=== PATIENT | female | born 1990 | race Hispanic/Latino ===

== ENCOUNTER 2018-03-07 08:07 | Emergency (ER) | payer OTHER ==
[2018-03-07] MEDS ORDERED: IBUPROFEN 600 MG TABLET ONE (08:29)
== END 2018-03-07 09:02 | disposition home or self-care (01) ==
LOC: EDH 08:07
DX: M25.512 Pain in left shoulder (principal); R07.89 Other chest pain; Z72.0 Tobacco use
CPT/HCPCS: 93005

== ENCOUNTER 2018-06-16 14:51 | Emergency (ER) | payer OTHER ==
[2018-06-16 16:25] LABS: APPEARANCE,URINE Clear (CLEAR); BILIRUBIN,URINE Negative (NEGATIVE); COLOR,URINE Yellow (YELLOW); GLUCOSE, URINE (UA) Negative (NEGATIVE); KETONES,URINE Negative (NEGATIVE); LEUKOCYTE ESTERASE ,URINE Small (NEGATIVE); NITRATE,URINE Negative (NEGATIVE); OCCULT BLOOD,URINE Trace (NEGATIVE); PROTEIN,URINE Negative (NEGATIVE)
[2018-06-16 16:38] LABS: HCG,QUAL RESULT NEGATIVE (NEGATIVE)
[2018-06-16 16:40] LABS: BACTERIA,URINE Few /HPF (None Seen); MUCUS,URINE Rare LPF (None Seen); SQUAMOUS EPITHELIAL CELL,UR Few /HPF (0-2)
== END 2018-06-16 19:02 | disposition home or self-care (01) ==
LOC: EDH 14:51
DX: R10.32 Left lower quadrant pain (principal); Z72.0 Tobacco use; Z98.890 Other specified postprocedural states
CPT/HCPCS: 76856; 81001; 81025

== ENCOUNTER 2019-04-12 23:08 | Emergency (ER) | payer SELFPAY ==
[2019-04-12 23:37] LABS: BASOPHILS % (AUTO) 0.2 % (0.0-5.0); EOSINOPHILS % (AUTO) 0.2 % (0.0-8.0); HEMATOCRIT 34.3 % (36-48); MEAN CORPUSCULAR HEMOGLOBIN 28.1 pg (27.0-33.0); MEAN CORPUSCULAR HGB CONC 33.6 g/dL (32.0-36.0); MEAN CORPUSCULAR VOLUME 83.6 fL (79-99); MONOCYTES % (AUTO) 5.3 % (3.0-13.0); NEUTROPHILS % (AUTO) 84.3 % (40.0-77.0); PLATELET COUNT (AUTO) 300 K/uL (130-400); RED CELL DISTRIBUTION WIDTH 15.8 % (11.0-15.5); WHITE BLOOD COUNT (AUTO) 15.8 K/uL (4.8-10.8)
[2019-04-12 23:38] LABS: APPEARANCE,URINE SL CLOUDY (CLEAR); BILIRUBIN,URINE SMALL (NEGATIVE); COLOR,URINE ORANGE (YELLOW); GLUCOSE, URINE (UA) NEGATIVE (NEGATIVE); KETONES,URINE 40 mg/dL (NEGATIVE); LEUKOCYTE ESTERASE ,URINE TRACE (NEGATIVE); NITRATE,URINE NEGATIVE (NEGATIVE); OCCULT BLOOD,URINE LARGE (NEGATIVE); PROTEIN,URINE 30 mg/dL (NEGATIVE)
[2019-04-12 23:42] LABS: CREATININE 0.7 mg/dL (0.5-1.5); POTASSIUM 3.5 mmol/L (3.5-5.1)
[2019-04-13] MEDS ORDERED: ACETAMINOPHEN 325 MG TAB ONE (00:07)
[2019-04-13 00:16] LABS: BACTERIA,URINE Few /HPF (None Seen); MUCUS,URINE Moderate LPF (None Seen); RBC,URINE 26-50 /HPF (0-1)
== END 2019-04-13 00:54 | disposition home or self-care (01) ==
LOC: EDH 23:08
DX: O03.9 Complete or unspecified spontaneous abortion without complication (principal); R10.9 Unspecified abdominal pain; Z3A.01 Less than 8 weeks gestation of pregnancy
CPT/HCPCS: 36415; 76801; 80048; 81001; 84702; 85025; 87210; 87486; 87797

== ENCOUNTER 2019-06-19 11:06 | Emergency (ER) | payer SELFPAY ==
[2019-06-19 11:31] LABS: BASOPHILS % (AUTO) 0.2 % (0.0-5.0); EOSINOPHILS % (AUTO) 0.3 % (0.0-8.0); HEMATOCRIT 33.3 % (36-48); LYMPHOCYTES % (AUTO) 15.8 % (21.0-51.0); MEAN CORPUSCULAR HEMOGLOBIN 28.5 pg (27.0-33.0); MEAN CORPUSCULAR HGB CONC 33.8 g/dL (32.0-36.0); MEAN CORPUSCULAR VOLUME 84.3 fL (79-99); MONOCYTES % (AUTO) 8.2 % (3.0-13.0); NEUTROPHILS % (AUTO) 75.5 % (40.0-77.0); PLATELET COUNT (AUTO) 258 K/uL (130-400); RED BLOOD CELL COUNT(AUTO) 3.95 MIL/uL (4.00-5.50); RED CELL DISTRIBUTION WIDTH 14.1 % (11.0-15.5); WHITE BLOOD COUNT (AUTO) 13.1 K/uL (4.8-10.8)
[2019-06-19] MEDS ORDERED: ONDANSETRON HCL 4 MG/2 ML VIAL ONE (11:35)
[2019-06-19] MEDS ORDERED: SODIUM CHLORIDE 0.9% 1000ML 1,000 ML IV ONE (11:35)
[2019-06-19 11:36] LABS: APPEARANCE,URINE Clear (CLEAR); BILIRUBIN,URINE Negative (NEGATIVE); COLOR,URINE Yellow (YELLOW); GLUCOSE, URINE (UA) Negative (NEGATIVE); KETONES,URINE Negative (NEGATIVE); LEUKOCYTE ESTERASE ,URINE Trace (NEGATIVE); NITRATE,URINE Negative (NEGATIVE); OCCULT BLOOD,URINE Trace (NEGATIVE); PROTEIN,URINE Negative (NEGATIVE)
[2019-06-19] MEDS ORDERED: KETOROLAC TROMETHAMINE 30MG/ML ONE (11:36)
[2019-06-19 11:39] LABS: HCG,QUAL RESULT NEGATIVE (NEGATIVE)
[2019-06-19 11:39] LABS: CREATININE 0.6 mg/dL (0.5-1.5); POTASSIUM 3.8 mmol/L (3.5-5.1)
[2019-06-19 11:45] LABS: WBC,URINE 0-1 /HPF (0-1)
[2019-06-19 11:46] LABS: BACTERIA,URINE Rare /HPF (None Seen); HYALINE CASTS, URINE 0-1 /LPF (0-1 /LPF)
[2019-06-19 11:46] LABS: ALBUMIN 3.4 g/dL (3.5-5.0); BILIRUBIN,TOTAL 0.5 mg/dL (0.2-1.0); TOTAL PROTEIN, SERUM 7.3 g/dL (6.0-8.3)
[2019-06-19] MEDS ORDERED: IOHEXOL-350 75 ML VIAL IV ONE (12:53)
== END 2019-06-19 14:26 | disposition home or self-care (01) ==
LOC: EDH 11:06
DX: R10.31 Right lower quadrant pain (principal); Z98.890 Other specified postprocedural states; Z72.0 Tobacco use
CPT/HCPCS: 36415; 74177; 80053; 81001; 81025; 83690; 85025; 96374; 96375; 99285; J1885; J2405; J7030; Q9967

== ENCOUNTER 2019-11-16 12:39 | Emergency (ER) | payer OTHER ==
[2019-11-16 13:20] LABS: BASOPHILS % (AUTO) 0.3 % (0.0-5.0); EOSINOPHILS % (AUTO) 0.5 % (0.0-8.0); HEMATOCRIT 36.6 % (36-48); LYMPHOCYTES % (AUTO) 18.3 % (21.0-51.0); MEAN CORPUSCULAR HEMOGLOBIN 26.4 pg (27.0-33.0); MEAN CORPUSCULAR HGB CONC 32.2 g/dL (32.0-36.0); MEAN CORPUSCULAR VOLUME 81.9 fL (79-99); MONOCYTES % (AUTO) 6.8 % (3.0-13.0); NEUTROPHILS % (AUTO) 73.2 % (40.0-77.0); PLATELET COUNT (AUTO) 455 K/uL (130-400); RED BLOOD CELL COUNT(AUTO) 4.47 MIL/uL (4.00-5.50); RED CELL DISTRIBUTION WIDTH 14.9 % (11.0-15.5); WHITE BLOOD COUNT (AUTO) 13.1 K/uL (4.8-10.8)
[2019-11-16 13:24] LABS: BILIRUBIN,URINE Negative (NEGATIVE); COLOR,URINE Yellow (YELLOW); GLUCOSE, URINE (UA) Negative (NEGATIVE); KETONES,URINE Negative (NEGATIVE); LEUKOCYTE ESTERASE ,URINE Negative (NEGATIVE); NITRATE,URINE Negative (NEGATIVE); OCCULT BLOOD,URINE Negative (NEGATIVE); PH,URINE 7.5 (5.0-8.0); PROTEIN,URINE Negative (NEGATIVE)
[2019-11-16 13:31] LABS: HCG,QUAL RESULT NEGATIVE (NEGATIVE)
[2019-11-16 13:32] LABS: CREATININE 0.5 mg/dL (0.5-1.5); POTASSIUM 3.9 mmol/L (3.5-5.1)
[2019-11-16 13:32] LABS: APPEARANCE,URINE CLEAR (CLEAR)
[2019-11-16 13:40] LABS: ALBUMIN 3.7 g/dL (3.5-5.0); BILIRUBIN,TOTAL 0.3 mg/dL (0.2-1.0); TOTAL PROTEIN, SERUM 8.4 g/dL (6.0-8.3)
== END 2019-11-16 14:25 | disposition left against medical advice (07) ==
LOC: EDH 12:39
DX: M54.6 Pain in thoracic spine (principal); Z72.0 Tobacco use
CPT/HCPCS: 36415; 80053; 81003; 81025; 85025

== ENCOUNTER 2022-07-03 15:53 | Emergency (ER) | payer MEDICAID ==
[~2022-07-03] VITALS: Ht 154.9 cm; Wt 77.6 kg
[2022-07-03 16:18] LABS: BASOPHILS % (AUTO) 0.4 % (0.0-5.0); HEMATOCRIT 38.2 % (36-48); MEAN CORPUSCULAR HEMOGLOBIN 27.3 pg (27.0-33.0); MEAN CORPUSCULAR VOLUME 82.7 fL (79-99); MONOCYTES % (AUTO) 8.9 % (3.0-13.0); NEUTROPHILS % (AUTO) 82.3 % (40.0-77.0); PLATELET COUNT (AUTO) 324 K/uL (130-400); RED BLOOD CELL COUNT(AUTO) 4.62 MIL/uL (4.00-5.50); RED CELL DISTRIBUTION WIDTH 15.5 % (11.0-15.5); WHITE BLOOD COUNT (AUTO) 8.4 K/uL (4.8-10.8)
[2022-07-03 16:26] LABS: CREATININE 0.7 mg/dL (0.5-1.5); POTASSIUM 3.3 mmol/L (3.5-5.1)
[2022-07-03 16:28] LABS: APPEARANCE,URINE CLEAR (CLEAR); BILIRUBIN,URINE NEGATIVE (NEGATIVE); COLOR,URINE YELLOW (YELLOW); GLUCOSE, URINE (UA) NEGATIVE (NEGATIVE); KETONES,URINE NEGATIVE (NEGATIVE); LEUKOCYTE ESTERASE ,URINE NEGATIVE Leu/uL (NEGATIVE); NITRATE,URINE NEGATIVE (NEGATIVE); OCCULT BLOOD,URINE MODERATE (NEGATIVE); PH,URINE 6.5 (5.0-8.0); PROTEIN,URINE 50 mg/dL (NEGATIVE); UROBILINOGEN,URINE 3 mg/dL (0.2-1.0)
[2022-07-03] MEDS ORDERED: BENZONATATE 100 MG CAPSULE PO SCH (16:30)
[2022-07-03] MEDS ORDERED: 0.9%NACL 1000ML 1,000 ML IV ONE (16:30)
[2022-07-03] MEDS ORDERED: IBUPROFEN 600 MG TABLET PO ONE (16:30)
[2022-07-03] MEDS ORDERED: ONDANSETRON 4MG INJ IVP ONE (16:30)
[2022-07-03] MEDS ORDERED: ACETAMINOPHEN 500 MG TABLET PO ONE (16:30)
[2022-07-03] MEDS ORDERED: FAMOTIDINE 20MG VIAL IV ONE (16:30)
[2022-07-03 16:31] LABS: HCG,QUALITATIVE URINE NEGATIVE (NEGATIVE)
[2022-07-03 16:31] LABS: ALBUMIN 3.8 g/dL (3.5-5.0); TOTAL PROTEIN, SERUM 8.2 g/dL (6.0-8.3)
[2022-07-03] MEDS ORDERED: BENZONATATE 100 MG CAPSULE PO ONE (16:33)
[2022-07-03 16:36] LABS: BACTERIA,URINE RARE /HPF (None Seen); MUCUS,URINE FEW LPF (None Seen); SQUAMOUS EPITHELIAL CELL,UR RARE /HPF (0-2)
[2022-07-03] MEDS ORDERED: OSEL75 PO (17:32)
[2022-07-03] MEDS ORDERED: IBUP-2070 PO (17:32)
[2022-07-03] MEDS ORDERED: ONDA4TAB10 PO (17:32)
[2022-07-03 17:45] VITALS: BP 111/64
== END 2022-07-03 17:46 | disposition home or self-care (01) ==
LOC: EDH 15:53
DX: J10.1 Influenza due to other identified influenza virus with other respiratory manifestations (principal); Z98.890 Other specified postprocedural states; Z20.822 Contact with and (suspected) exposure to COVID-19
CPT/HCPCS: 99284; 96374; 96375; 87635; 80053; 85025; 87880; 87804 ×2; 81001; 81025; 36415; C9803; J2405; S0028; J3490

== ENCOUNTER 2024-12-03 16:40 | Emergency (ER) | payer MEDICAID ==
[~2024-12-03] VITALS: Ht 157.5 cm; Wt 84.4 kg
[~2024-12-03 16:40] MED LIST: IBUP-2070 PO; ONDA-243 PO; OSEL75 PO
[2024-12-03] MEDS: ketOROlac 15MG/ML VIAL (15MG/ML) IM ONE (17:30)
[2024-12-03 17:56] LABS: BASOPHILS # (AUTO) 0.05 K/uL (0.00-0.20); BASOPHILS % (AUTO) 0.3 % (0.0-5.0); HEMATOCRIT 36.4 % (36-48); MEAN CORPUSCULAR HEMOGLOBIN 27.8 pg (27.0-33.0); MEAN CORPUSCULAR VOLUME 84.3 fL (79-99); MONOCYTES # (AUTO) 0.9 K/uL (0.1-1.0); MONOCYTES % (AUTO) 5.1 % (3.0-13.0); PLATELET COUNT (AUTO) 298 K/uL (130-400); RED BLOOD CELL COUNT(AUTO) 4.32 MIL/uL (4.00-5.50); RED CELL DISTRIBUTION WIDTH 14.3 % (11.0-15.5); WHITE BLOOD COUNT (AUTO) 17.1 K/uL (4.8-10.8)
[2024-12-03 18:04] LABS: CREATININE 0.7 mg/dL (0.5-1.0); POTASSIUM 3.9 mmol/L (3.5-5.1)
--- NOTE | 2024-12-03 18:07 | ERN ---
ED Note History of Present Illness Stated Complaint: MULT COMP Time Seen by MD: 16:42 Dictation: History of present illness: 34-year-old female with no significant past medical history presented to ED with complaints of fever, body aches, dizziness, vomiting, sore throat since yesterday. She also complains of headache. She smokes cigarette and she never use alcohol or drugs. Last menstrual period is 28 November 2024. Allergies: Coded Allergies: No Known Drug Allergies (Unverified Allergy, Unknown, 08/27/15) Home Meds Active Scripts Ondansetron (Ondansetron Odt) 4 Mg Tab.rapdis, 4 MG PO TID, #10 TAB Prov:[facility] 07/03/22 Ibuprofen (Ibuprofen) 600 Mg Tablet, 600 MG PO Q6H PRN for PAIN, #15 TAB Prov:[facility] 07/03/22 Oseltamivir Phosphate (Tamiflu) 75 Mg Cap, 75 MG PO BID, #10 CAP [facility]22 Past Medical History Past Medical History: No Pertinent History Surgical History: Other Surgical History Other: CLEFT PALATE Family History: Negative Social History: Negative RN Note Reviewed/Agreed w/PFSH: Yes Review of System Dictation REVIEW OF SYSTEMS positive for fever, body ache, dizziness, vomiting, sore thro at, constipation, orthopnea CONSTITUTIONAL: Denies night sweats. No unintentional weight loss reported. ENT: No hearing loss, otalgia, otorrhea, rhinitis, rhinorrhea, hoarseness, CARDIOVASCULAR: Denies any exertional angina, dyspnea on exertion, paroxysmal nocturnal dyspnea, palpitations claudication. PULMONARY: Denies any shortness of breath, cough, phlegm / sputum, hemoptysis, pleuritic chest pain. SLEEP: Denies morning headaches, daytime somnolence or napping. Denies difficulty falling asleep, staying asleep, waking from sleep. Denies knowledge of snoring. GASTROINTESTINAL: Denies any type of dysphagia to either liquids or solids. Denies nausea, vomiting, abdominal pain, diarrhea, constipation, blood in stools . NEUROLOGICAL: Denies, motor weakness, sensory deficit, vertigo / spinning sensation, gait abnormalities, or tremors. GENITOURINARY: Denies frequency, urgency, nocturia, hematuria or incontinence, low urinary stream, straining to void, urinary intermittency or hesitancy ENDOCRINOLOGY: Denies polyuria, polydipsia, polyphagia or heat / cold intolerance. HEMATOLOGY: Denies thrombophilia / previous clots, or coagulopathy / bleeding disorders. ONCOLOGIC: Denies personal history of malignancy. DERMATOLOGIC: Denies rashes or pruritus. PSYCHIATRIC: Denies any suicidal or homicidal ideation. Denies hallucinations. Initial Vital Sign VS Vital Signs Date Time Temp Pulse Resp B/P (MAP) Pulse Ox O2 Delivery O2 Flow Rate FiO2 12/03/24 18:29 100.9 99 20 131/75 98 0 Physical Exam Dictation PHYSICAL EXAM GENERAL APPEARANCE: Well nourished . Awake and alert. Oriented to time, place and person. Patient in mild distress HEENT: Head normocephalic , atraumatic. Sclera anicteric . Pupils are round and reactive. Extraocular movements intact . No conjunctival injection. Throat congested with the hypertrophied tonsils NECK: Supple. No JVD. No thyromegaly. No submental, submandibular, pre- /postauricular, occipital or supraclavicular lymphadenopathy. No carotid bruits. CHEST: Normal chest expansion. No Telemetry. LUNGS: Clear to auscultation bilaterally . No rales, rhonchi or any wheezing. Equal tactile fremitus. Resonant to percussion . CARDIOVASCULAR: Regular rate and rhythm. S1 and S2 normal. No rubs, murmurs or gallops. ABDOMEN: Soft, nontender, and nondistended. There is no rebound tenderness, voluntary guarding, or rigidity. No hepatosplenomegaly. Bowel sounds normal in all four quadrants . NEUROLOGICAL: Cranial nerves II-XII grossly intact. Motor is 5/5 in bilateral upper and lower extremities . No sensory deficits. EXTREMITIES: No edema, No cyanosis , No clubbing. Good capillary refill. SKIN: No skin breakdown. No rashes or lesions . PSYCHIATRY: Normal affect .No auditory or visual hallucinations. Normal speech. No dysarthria. Results (Laboratory/Radiology) Laboratory/Radiology Laboratory Tests Test 12/03/24 17:45 12/03/24 18:30 White Blood Count 17.1 K/uL (4.8-10.8) H Red Blood Count 4.32 MIL/uL (4.00-5.50) Hemoglobin 12.0 g/dL (12.0-16.0) Hematocrit 36.4 % (36-48) Mean Corpuscular Volume 84.3 fL (79-99) Mean Corpuscular Hemoglobin 27.8 pg (27.0-33.0) Mean Corpuscular Hemoglobin Concent 33.0 g/dL (32.0-36.0) Red Cell Distribution Width 14.3 % (11.0-15.5) Platelet Count 298 K/uL (130-400) Mean Platelet Volume 9.7 fL (7.5-10.5) Immature Granulocyte % (Auto) 0.6 % (0-1) Neutrophils (%) (Auto) 88.0 % (40.0-77.0) H Lymphocytes (%) (Auto) 6.0 % (21.0-51.0) L Monocytes (%) (Auto) 5.1 % (3.0-13.0) Eosinophils (%) (Auto) 0.0 % (0.0-8.0) Basophils (%) (Auto) 0.3 % (0.0-5.0) Neutrophils # (Auto) 15.0 K/uL (1.8-7.7) H Lymphocytes # (Auto) 1.0 K/uL (1.0-4.8) Monocytes # (Auto) 0.9 K/uL (0.1-1.0) Eosinophils # (Auto) 0.00 K/uL (0.00-0.70) Basophils # (Auto) 0.05 K/uL (0.00-0.20) Absolute Immature Granulocyte (auto 0.10 K/uL (0-1) Nucleated Red Blood Cells 0.0 % (0.0-0.19) White Cell Morphology Comment See comments Sodium Level 130 mmol/L (136-145) L Potassium Level 3.9 mmol/L (3.5-5.1) Chloride Level 96 mmol/L (101-111) L Carbon Dioxide Level 28 mmol/L (21-32) Blood Urea Nitrogen 11 mg/dL (7-18) Creatinine 0.7 mg/dL (0.5-1.0) Glomerular Filtration Rate Calc 116 mL/min (>90) Random Glucose 102 mg/dL (70-105) Lactic Acid Level 1.5 mmol/L (0.8-2.5) Total Calcium 8.8 mg/dL (8.5-10.1) Total Creatine Kinase 42 U/L (21-232) # B-Type Natriuretic Peptide 15 pg/mL (0-100) Influenza Type A Antigen Negative For Type A Influenza Type B Antigen Negative For Type B SARS-CoV-2 Antigen (Rapid) PRESUMPTIVE NEGATIVE Group A Streptococcus Rapid positive (NEGATIVE) *A Labs Reviewed?: Yes ED Course ED Course Orders Procedure Category Date Status Time Cbc With Differential LAB 12/03/24 Complete 17:28 Basic Metabolic Panel LAB 12/03/24 Complete 17:28 Influenza Type A & B, LAB 12/03/24 Complete Rapid 17:28 Rapid (Group A Strep) LAB 12/03/24 Complete 17:28 Covid19 (Sars Antigen LAB 12/03/24 Complete Rapid) 17:28 Chest 1vw RAD 12/03/24 Resulted 17:28 Lactic Acid LAB 12/03/24 Complete 17:28 Urinalysis Profile LAB 12/03/24 Logged 17:28 ,Urine Test LAB 12/03/24 Logged 17:28 Creatine Kinase, Total LAB 12/03/24 Complete 17:28 Ketorolac PHA 12/03/24 Complete Tromethamine 15mg/Ml 17:30 B-Type Natriuretic LAB 12/03/24 Complete Peptide 17:33 0.9%Nacl 1000ml (Ns PHA 12/03/24 In Process 1000ml) 18:30 Ct Neck Soft Tissue CT 12/03/24 Logged W/Wo Contr 18:27 Ceftriaxone 500mg PHA 12/03/24 Complete Vial (Rocephin 500mg I 19:00 Current Medications Medications (Trade) Dose Ordered Sig/Yaneli Route PRN Reason Start Time Stop Time Status Last Admin Dose Admin Ceftriaxone Sodium (Rocephin 500mg Inj) 500 mg ONCE ONCE IM 12/03/24 19:00 12/03/24 19:01 DC Ketorolac Tromethamine (toRADol) 15 mg ONCE ONCE IM 12/03/24 17:30 12/03/24 17:57 DC Sodium Chloride 1,000 ml @ 125 mls/hr Q8H ONCE IV 12/03/24 18:30 12/04/24 02:29 Vital Signs Date Time Temp Pulse Resp B/P (MAP) Pulse Ox O2 Delivery O2 Flow Rate FiO2 3/19/25 18:29 100.9 99 20 131/75 98 0 P.m. patient was signed out to me to follow up on the labs. This is a 34-year-old female who presented with flu-like symptoms fever body aches and sore throat. She has some erythema of the posterior pharyngeal wall and right tonsil is enlarged with a whitish exudate. Labs showed a white count of 17.1 BNP 7 is significant for mild dehydration with a sodium of 30 potassium 3.9 chloride 96 Swabs revealed positive for group a strep. We will give Toradol and Rocephin. We will discharge her to follow up with her primary care physician. I updated the patient and spouse on available information and possible group a strep tonsillitis and pharyngitis as a cause of her symptoms. Answered all the questions Medical Decision Making MDM Differential diagnosis : Acute tonsillitis, streptococcal pharyngitis, acute viral fever Rationale: Tests considered and ordered secondary to shared decision making include: I will re-evaluate the patient after treatment and diagnostic exams have returned to determine whether they require further testing, can be safely discharged home, or need admission for further treatment and evaluation. Given the social determinants of health affecting care, including literacy, access to medical care, prescription drug management, and [id number] drugs, I will ensure that treatment plans are tailored accordingly. There are no social concerns with this patient. Risk of complication and/or morbidity or mortality of patient management: None Need for hospitalization: Patient does not meet criteria for hospitalization. Need for emergency major/minor surgery: No Prescription drug management Prescriptions will include symptomatic care Medications-Per medication reconciliation Previous outside records reviewed: Old ER visits. Patient's prior external medical records from other ER visits were reviewed by me as indicated. Prior testing and results from previous visits were reviewed. Prior tests were taken into account with medical decision making and resource utilization, independent historian/historians were used to obtain complete medical history. I independently interpreted the test that were performed, results were reviewed by me and considered findings on radiology. Medical management and examination interpretation discussions was done by me with other qualified healthcare professionals as indicated for the patient's care. Revaluation: Patient appears sick. Tonsils enlarged right more than left. WBC 17.1,, sodium 130, group a streptococci positive. We have treated her with IV fluids ceftriaxone IM. Disposition : DX & DISP Disposition: Discharge Departure Impression: Primary Impression: Streptococcal adenotonsillitis Condition: Stable Scripts Prednisone (Prednisone) 20 Mg Tablet 1 TAB PO AD for 6 Days, #14 TAB 0 Refills TAKE 1 TAB BY MOUTH THREE TIMES PER DAY X3 DAYS, THEN TAKE 1 TAB BY MOUTH TWICE A DAY X2 DAYS, THEN TAKE 1 TAB BY MOUTH ONCE A DAY X1 DAY. Prov: COREY MUSTAFA MD 12/03/24 Ketorolac Tromethamine (Toradol) 10 Mg Tab 10 MG PO QID for pain for 5 Days, #20 TAB 0 Refills Prov: COREY MUSTAFA MD 12/03/24 Amoxicillin/Potassium Clav (Augmentin 500-125 Tablet) 500 Mg-125 Mg Tablet 1 TAB PO BID for 10 Days, #20 TAB 0 Refills Prov: COREY MUSTAFA MD 12/03/24 Additional Instructions: Patient and the caregiver have been informed of all the diagnostic tests and the imaging conducted during the today's visit to the emergency room and has verbalized understanding of the results I have personally reviewed and interpreted all diagnostic exams performed here in the ER today as well as the vital signs documented by the nursing staff. The patient is now being discharged to home and should follow up with the primary care physician or the specialist as directed by the ER staff. Follow-up with primary care provider in 1 to 2 days. Take medications as directed here in the emergency room. Okay to continue home medications unless otherwise discussed during your visit in the emergency room today. Return to your nearest emergency room if symptoms worsen or if there is no improvement. Call 911 if you need immediate assistance. Take Tylenol or Motrin [id number] as needed and if no contraindications are present. Increase oral hydration. A wound culture or urine culture was ordered here in the emerg ency room department please follow-up with primary care provider and advise them to get repeat ports from our facility. If you had any Óscar wrap/splints that were applied here, please do not remove them until you see your primary care or specialty. Referrals: MARLON PLASCENCIA MD (PCP) TIKA BASSETT MD Dec 03, 2024 18:07 COREY MUSTAFA MD Dec 03, 2024 21:05
[2024-12-03] MEDS: 0.9%NACL 1000ML 1,000 ML IV ONE (18:30)
--- NOTE | 2024-12-03 18:51 | NUR ---
STREP + ERMD MADE AWARE
[2024-12-03 18:52] LABS: RAPID GROUP A STREP positive (NEGATIVE)
--- NOTE | 2024-12-03 18:55 | HMCIMG ---
PORTABLE CHEST RADIOGRAPH INDICATION: tonsilitis, orthopnea COMPARISON: 01/28/2017 FINDINGS: Heart size is normal. The pulmonary vascularity and zakia appear normal. No abnormal pulmonary parenchymal opacity or consolidation identified. No significant pleural effusion noted. No pneumothorax detected. IMPRESSION: No radiographic evidence for any acute cardiopulmonary process.
[2024-12-03] MEDS: CEFTRIAXONE 500MG VIAL IM ONE (19:00)
[2024-12-03 19:01] LABS: COVID19 (SARS ANTIGEN RAPID) PRESUMPTIVE NEGATIVE (NEGATIVE); INFLUENZA TYPE A Negative For Type A (NEGATIVE); INFLUENZA TYPE B Negative For Type B (NEGATIVE)
[2024-12-03] MEDS ORDERED: KETO10 PO (21:03)
[2024-12-03] MEDS ORDERED: AMOX-426 PO (21:03)
[2024-12-03] MEDS ORDERED: PRED20TA3 PO (21:05)
[2024-12-03] MEDS: dexaMETHasone SOD PHOSPHATE 4 MG/ML 1ML VIAL IM ONE (21:16)
--- NOTE | 2024-12-03 21:21 | NUR ---
as per dr. valdez do not administer iv fluids, meds only, will be dc soon
[2024-12-03 21:36] VITALS: BP 127/69; PULSE 85; RESP 20; TEMP 99.9; O2SAT 99
== END 2024-12-03 21:40 | disposition home or self-care (01) ==
LOC: EDH 16:40
DX: J03.00 Acute streptococcal tonsillitis, unspecified (principal); F17.200 Nicotine dependence, unspecified, uncomplicated; Z20.822 Contact with and (suspected) exposure to COVID-19
CPT/HCPCS: 99284; 71045; 87426; 82550; 80048; 83880; 85025; 87880; 87804 ×2; 83605; 36415; 96372 ×3; J1100; J1885; J0696